=== PATIENT | male | born 1930 | race Caucasian/White ===

== ENCOUNTER 2016-10-21 16:54 | Inpatient (IN) | payer MEDICARE, MEDICAID ==
[~2016-10-21] VITALS: Ht 160 cm; Wt 55.1 kg
[2016-10-21] MEDS ORDERED: ASPI81 PO (17:27)
[2016-10-21] MEDS ORDERED: METO50 PO (17:27)
[2016-10-21] MEDS ORDERED: FINA5TAB41 PO (17:27)
[2016-10-21] MEDS ORDERED: CLON.1 PO (17:27)
[2016-10-21] MEDS ORDERED: LOSA50TA37 PO (17:27)
[2016-10-21] MEDS ORDERED: HYDROCODONE/ACETAMINOPHEN 5-325 MG TABLET PO ONE (18:30)
[2016-10-21] MEDS ORDERED: MORPHINE SULFATE 4 MG/ML SYRINGE IVP ONE (19:45)
[2016-10-21] MEDS ORDERED: ONDANSETRON HCL 4 MG/2 ML VIAL IVP ONE (19:45)
[2016-10-21 20:15] LABS: BASOPHILS % (AUTO) 0.2 % (0.0-2.0); EOSINOPHILS % (AUTO) 0.1 % (1.0-6.0); HEMATOCRIT 35.6 % (41-53); HEMOGLOBIN 11.6 g/dL (13.5-17.5); LYMPHOCYTES # (AUTO) 0.9 K/uL (1.0-4.8); LYMPHOCYTES % (AUTO) 12.5 % (22.0-44.0); MEAN CORPUSCULAR HEMOGLOBIN 31.9 pg (26.0-34.0); MEAN CORPUSCULAR HGB CONC 32.7 G/dL (31.0-37.0); MEAN CORPUSCULAR VOLUME 98 fL (80-100); MONOCYTES # (AUTO) 0.7 K/uL (0.1-1.0); MONOCYTES % (AUTO) 9.7 % (2.0-9.0); NEUTROPHILS # (AUTO) 5.3 K/uL (1.8-7.7); NEUTROPHILS % (AUTO) 77.5 % (40.0-70.0); PLATELET COUNT (AUTO) 109 K/uL (150-450); RED BLOOD CELL COUNT(AUTO) 3.64 MIL/uL (4.50-5.90); RED CELL DISTRIBUTION WIDTH 14.4 % (11.5-14.5); WHITE BLOOD COUNT (AUTO) 6.9 K/uL (4.5-11.0)
[2016-10-21 20:44] LABS: ANION GAP 12 mmol/L (8-16); CALCIUM, TOTAL 8.4 mg/dL (8.8-10.5); CARBON DIOXIDE 24 mmol/L (22-29); CHLORIDE 104 mmol/L (98-107); CREATININE 0.67 mg/dL (0.60-1.30); GLOMERULAR FILTR. RATE CALC > 60 mL/min (>60); POTASSIUM 3.4 mmol/L (3.5-5.1); SODIUM SERUM 140 mmol/L (136-145); UREA NITROGEN, BLOOD 19 mg/dL (7-18)
[2016-10-21 20:48] LABS: ALANINE AMINOTRANSFERASE 28 U/L (12-78); ALBUMIN 3.3 g/dL (3.4-5.0); ASPARTATE AMINOTRANSFERASE 25 U/L (15-37); BILIRUBIN,TOTAL 1.4 mg/dL (0.1-1.0); TOTAL PROTEIN, SERUM 6.4 g/dL (6.4-8.2)
[2016-10-21 22:49] VITALS: BP 152/63
[2016-10-21] MEDS ORDERED: IPRATROPIUM BROMIDE 0.5 MG/2.5 ML NEB SOLUTION NEB PRN (23:00)
[2016-10-21] MEDS ORDERED: BISACODYL 10 MG RECTAL RECTAL SUPPOSITORY PR PRN (23:00)
[2016-10-21] MEDS ORDERED: MAGNESIUM HYDROXIDE SUSPENSION 30 ML UDCUP PO PRN (23:00)
[2016-10-21] MEDS ORDERED: MORPHINE SULFATE 2 MG/ML SYRINGE IVP PRN (23:00)
[2016-10-21] MEDS ORDERED: ONDANSETRON HCL 4 MG/2 ML VIAL IVP PRN (23:00)
[2016-10-21] MEDS ORDERED: ZOLPIDEM TARTRATE 5 MG TABLET PO PRN (23:00)
[2016-10-21] MEDS ORDERED: ACETAMINOPHEN 325 MG TABLET PO PRN (23:00)
[2016-10-21] MEDS ORDERED: POTASSIUM CHLORIDE 20 MEQ ER TABLET PO PRN (23:00)
[2016-10-21] MEDS ORDERED: ALBUTEROL SULFATE 2.5 MG/0.5 ML NEB SOLUTION NEB PRN (23:00)
[2016-10-21] MEDS: CloNIDine HCL 0.1 MG TABLET PO SCH (23:59)
[2016-10-21] MEDS: HEPARIN SODIUM,PORCINE 5,000 UNITS/ML VIAL SQ SCH (23:59)
[2016-10-22] MEDS: HYDROCODONE/ACETAMINOPHEN 5-325 MG TABLET PO PRN ×2 (00:33→22:12)
[2016-10-22] MEDS ORDERED: PNEUMOCOCCAL VACCINE POLYVALENT 0.5 ML VIAL [PPSV23] IM ONE (03:15)
[2016-10-22 05:49] VITALS: BP 117/53
[2016-10-22 07:18] VITALS: BP 157/75
[2016-10-22] MEDS: CloNIDine HCL 0.1 MG TABLET PO SCH ×2 (08:35→20:16)
[2016-10-22] MEDS: FINASTERIDE 5 MG TABLET PO SCH (08:35)
[2016-10-22] MEDS: HEPARIN SODIUM,PORCINE 5,000 UNITS/ML VIAL SQ SCH ×2 (08:36→16:00)
[2016-10-22] MEDS: METOPROLOL TARTRATE 50 MG TABLET PO SCH (08:36)
[2016-10-22] MEDS: LOSARTAN POTASSIUM 50 MG TABLET PO SCH (08:36)
[2016-10-22] MEDS: DOCUSATE SODIUM 100 MG CAPSULE PO SCH ×2 (08:36→20:15)
[2016-10-22] MEDS: ASPIRIN 81 MG CHEWABLE TABLET PO SCH (08:36)
[2016-10-22] MEDS: PANTOPRAZOLE SODIUM 40 MG/VIAL IVP SCH (08:37)
[2016-10-22 11:25] VITALS: BP 138/68
[2016-10-22 15:21] VITALS: BP 148/64
[2016-10-22 19:32] VITALS: BP 156/71
[2016-10-22 23:16] VITALS: BP 115/55
[2016-10-23 05:15] VITALS: BP 153/77
[2016-10-23 07:15] VITALS: BP 148/74
[2016-10-23] MEDS: CloNIDine HCL 0.1 MG TABLET PO SCH ×2 (07:46→20:31)
[2016-10-23] MEDS: PANTOPRAZOLE SODIUM 40 MG/VIAL IVP SCH (07:46)
[2016-10-23] MEDS: DOCUSATE SODIUM 100 MG CAPSULE PO SCH ×2 (07:46→20:31)
[2016-10-23] MEDS: LOSARTAN POTASSIUM 50 MG TABLET PO SCH (07:46)
[2016-10-23] MEDS: METOPROLOL TARTRATE 50 MG TABLET PO SCH (07:46)
[2016-10-23] MEDS: ASPIRIN 81 MG CHEWABLE TABLET PO SCH (07:46)
[2016-10-23] MEDS: HEPARIN SODIUM,PORCINE 5,000 UNITS/ML VIAL SQ SCH ×2 (08:00→15:51)
[2016-10-23] MEDS: FINASTERIDE 5 MG TABLET PO SCH (08:13)
[2016-10-23 12:04] VITALS: BP 144/67
[2016-10-23 16:40] VITALS: BP 148/70
[2016-10-23 20:31] VITALS: BP 164/111
[2016-10-23 22:52] VITALS: BP 149/79
[2016-10-24] MEDS: HEPARIN SODIUM,PORCINE 5,000 UNITS/ML VIAL SQ SCH ×3 (00:46→15:54)
[2016-10-24 00:51] VITALS: BP 139/61
[2016-10-24 04:00] VITALS: BP 133/59
[2016-10-24 07:49] VITALS: BP 137/72
[2016-10-24] MEDS: DOCUSATE SODIUM 100 MG CAPSULE PO SCH ×2 (08:44→08:50)
[2016-10-24] MEDS: FINASTERIDE 5 MG TABLET PO SCH (08:45)
[2016-10-24] MEDS: ASPIRIN 81 MG CHEWABLE TABLET PO SCH (08:45)
[2016-10-24] MEDS: CloNIDine HCL 0.1 MG TABLET PO SCH (08:45)
[2016-10-24] MEDS: PANTOPRAZOLE SODIUM 40 MG/VIAL IVP SCH (08:46)
[2016-10-24] MEDS: LOSARTAN POTASSIUM 50 MG TABLET PO SCH (09:00)
[2016-10-24 11:20] VITALS: BP 110/63
[2016-10-24] MEDS ORDERED: HYDR-309 PO (11:47)
[2016-10-24] MEDS: METOPROLOL TARTRATE 50 MG TABLET PO SCH (15:54)
[2016-10-24 16:19] VITALS: BP 141/67
== END 2016-10-24 18:10 | disposition home or self-care (01) | DRG 554 ==
LOC: EMS 16:56 → 6N 20:42
PROVIDERS: ADMIT Hospitalist; ATTEND Hospitalist
DX: M16.0 Bilateral primary osteoarthritis of hip (principal); E44.0 Moderate protein-calorie malnutrition; M25.451 Effusion, right hip; E87.6 Hypokalemia; E78.5 Hyperlipidemia, unspecified; I10 Essential (primary) hypertension; I25.10 Atherosclerotic heart disease of native coronary artery without angina pectoris; Z85.46 Personal history of malignant neoplasm of prostate; Z87.442 Personal history of urinary calculi; Z95.1 Presence of aortocoronary bypass graft; Z95.0 Presence of cardiac pacemaker; Z87.891 Personal history of nicotine dependence; Z79.82 Long term (current) use of aspirin; Z79.899 Other long term (current) drug therapy; I25.2 Old myocardial infarction; Z68.21 Body mass index [BMI] 21.0-21.9, adult
CPT/HCPCS: 73502; 73700; 90471; 96374; 96375; 97116; 97162; 97166; 97530; 97535; 99285; C9113; J1644; J2270; J2405